=== PATIENT | male | born 1955 | race Caucasian/White ===

== ENCOUNTER → 2018-03-01 | Outpatient (CLI) | payer OTHER ==
[~2018-03-01] MED LIST: ACETAMINOPHEN325 M1 PO; BETIMOL15 ML OP; CALCIUM + D 601 EACH PO; CLARITIN10 M3 PO; CLONAZEPAM1 MG PO; CLONAZEPAM2 MG PO; COLACE100 MG PO; ECONAZOLE NITRA85 GM TP; MINOCIN50 MG PO; MUCINEX DM ER1 EAC1 PO; NYSTATIN-TRIAMC15 GM TP; REGULOID POWDE540 G1 PO; SINEQUAN50 MG PO; TEGRETOL200 MG PO; TRAVATAN 0.004%5 ML BOTH EYES; VASOTEC20 MG PO; ZYPREXA20 MG PO
== END | disposition home or self-care (01) ==
LOC: EKG 12:33
DX: I51.89 Other ill-defined heart diseases (principal); I51.7 Cardiomegaly; I05.1 Rheumatic mitral insufficiency; R05 Cough; J45.990 Exercise induced bronchospasm; M79.89 Other specified soft tissue disorders
CPT/HCPCS: 93306